=== PATIENT | male | born 1960 | race Caucasian/White ===

== ENCOUNTER 2022-11-26 10:15 | Inpatient (IN) | payer MEDICAID ==
[~2022-11-26] VITALS: Ht 180.3 cm; Wt 108.8 kg
[2022-11-26] MEDS ORDERED: SODIUM CHLOR 0.9% PF (SALINE LOCK) 10ML VIAL/SYR IV ONE (10:45)
[2022-11-26 10:53] LABS: Basophils # (auto) 0.1 10 ^3/uL (0-0.2); Basophils % (auto) 0.5 % (0.0-2.0); Eosinophils # (auto) 0 10 ^3/uL (0-0.8); Eosinophils % (auto) 0.4 % (0.0-7.0); Hematocrit 51.3 % (41.0-53.0); Hemoglobin 16.9 g/dL (13.5-17.5); Lymphocytes # (auto) 1.6 10 ^3/uL (0.4-5.4); Lymphocytes % (auto) 15.3 % (10.0-50.0); Mean Corpuscular Hemoglobin 29.9 pg (28.0-32.0); Mean Corpuscular Volume 90.6 fL (80.0-100.0); Monocytes # (auto) 0.7 10 ^3/uL (0-1.3); Monocytes % (auto) 6.5 % (0.0-12.0); Neutrophils # (auto) 8.3 10 ^3/uL (1.6-8.6); Neutrophils % (auto) 77.3 % (37.0-80.0); Red Blood Cells 5.66 10^6/uL (4.5-5.90); Red Cell Distribution Width 15.3 % (11.8-14.3); White Blood Cell 10.7 10^3/uL (4.4-10.8)
[2022-11-26 11:16] LABS: Lactic Acid w/Reflex 2.2 mmol/L (0.4-2.0)
[2022-11-26 11:22] LABS: INR 1.26 (0.9-1.15); Partial Thromboplastin Time 29.1 SEC (24.5-34.5)
[2022-11-26 11:35] LABS: Urine Bacteria NONE SEEN /hpf (None Seen); Urine Blood Negative /uL (Negative); Urine Specific Gravity 1.009 (1.001-1.035); Urine WBC <1 /hpf (0 - 3)
[2022-11-26 11:40] LABS: Potassium 4.1 mmol/L (3.5-5.1)
[2022-11-26 11:47] LABS: Albumin 3.3 g/dL (3.4-5.0); BUN/Creatinine Ratio 16.4 (10.0-20.0); Calcium 8.9 mg/dL (8.5-10.1)
[2022-11-26 11:50] LABS: Bilirubin, Total 2.7 mg/dL (0.2-1.0); Total Protein 6.1 g/dL (6.4-8.2)
[2022-11-26] MEDS ORDERED: FUROSEMIDE 40 MG/4 ML VIAL IV ONE (13:15)
[2022-11-26] MEDS ORDERED: DOCUSATE SOD 100 MG CAP PO PRN (14:30)
[2022-11-26] MEDS ORDERED: MORPHINE SULFATE INJ 2 MG/ml SYRG IV PRN (14:30)
[2022-11-26] MEDS ORDERED: ONDANSETRON HCL 4 MG/2 ML VIAL IV PRN (14:30)
[2022-11-26] MEDS ORDERED: NITROGLYCERIN 0.4 MG SL TAB SL PRN (14:30)
[2022-11-26] MEDS ORDERED: ACETAMINOPHEN 325 MG TAB PO PRN (14:30)
[2022-11-26] MEDS: DOXYCYCLINE 100MG/250ML 250 ML IV SCH (14:38)
[2022-11-26] MEDS: HYDROcodone-ACET 5/325MG TAB PO PRN ×2 (15:46→20:48)
[2022-11-26] MEDS: FUROSEMIDE 40 MG/4 ML VIAL IV SCH (19:10)
[2022-11-26] MEDS: SODIUM CHLOR 0.9% PF (SALINE LOCK) 10ML VIAL/SYR IV SCH (22:28)
[2022-11-26] MEDS ORDERED: dilTIAZem 25 MG/5 ML VIAL IV ONE (22:45)
[2022-11-27] VITALS (7 sets, daily range): BP systolic 140–164; BP diastolic 80–118
[2022-11-27] MEDS: HYDROcodone-ACET 5/325MG TAB PO PRN ×3 (02:40→22:21)
[2022-11-27] MEDS: DOXYCYCLINE 100MG/250ML 250 ML IV SCH ×2 (02:41→13:13)
[2022-11-27 06:21] LABS: Basophils # (auto) 0.1 10 ^3/uL (0-0.2); Basophils % (auto) 0.6 % (0.0-2.0); Eosinophils # (auto) 0.1 10 ^3/uL (0-0.8); Eosinophils % (auto) 1.1 % (0.0-7.0); Hematocrit 50.5 % (41.0-53.0); Hemoglobin 16.9 g/dL (13.5-17.5); Lymphocytes # (auto) 1.9 10 ^3/uL (0.4-5.4); Mean Corpuscular Hemoglobin 30.1 pg (28.0-32.0); Mean Corpuscular Hgb Conc. 33.4 g/dL (32.0-36.0); Mean Corpuscular Volume 90.2 fL (80.0-100.0); Monocytes # (auto) 0.7 10 ^3/uL (0-1.3); Monocytes % (auto) 7.6 % (0.0-12.0); Neutrophils # (auto) 6.9 10 ^3/uL (1.6-8.6); Neutrophils % (auto) 70.7 % (37.0-80.0); Nucleated Red Blood Cells % 0.2 %; Red Cell Distribution Width 15.3 % (11.8-14.3); White Blood Cell 9.7 10^3/uL (4.4-10.8)
[2022-11-27] MEDS: FUROSEMIDE 40 MG/4 ML VIAL IV SCH ×2 (06:21→17:52)
[2022-11-27] MEDS: SODIUM CHLOR 0.9% PF (SALINE LOCK) 10ML VIAL/SYR IV SCH ×3 (06:21→22:21)
[2022-11-27 06:25] LABS: Albumin 3.1 g/dL (3.4-5.0); BUN/Creatinine Ratio 15.6 (10.0-20.0); Calcium 8.7 mg/dL (8.5-10.1)
[2022-11-27 06:37] LABS: Bilirubin, Total 2.5 mg/dL (0.2-1.0); Total Protein 6.1 g/dL (6.4-8.2)
[2022-11-27] MEDS ORDERED: MUPI2OIN2 TOP (09:02)
[2022-11-27] MEDS ORDERED: FURO40TA4 PO (09:02)
[2022-11-27] MEDS ORDERED: TRAM50TA2 PO (09:02)
[2022-11-27] MEDS ORDERED: DAKINS QUARTER STR 0.125% (NaHypochlorite) 473 ML TOPICAL SOL TOP ONE (18:30)
[2022-11-27] MEDS ORDERED: ONDANSETRON HCL 4 MG/2 ML VIAL IV PRN (21:30)
[2022-11-27] MEDS ORDERED: ENALAPRILAT 1.25 MG/ML-1ML VIAL IV PRN (21:30)
[2022-11-27] MEDS ORDERED: ALPRAZolam 0.25 MG TAB PO PRN (21:30)
[2022-11-27] MEDS ORDERED: ASPirin 81 mg TAB PO ONE (21:30)
[2022-11-27] MEDS: SACUBITRIL-VALSARTAN 24mg/26mg TAB PO SCH (22:21)
[2022-11-28] MEDS ORDERED: ALBUTEROL SULF 2.5 MG/0.5ML(0.5%) NEB SOLN NEB PRN (01:30)
[2022-11-28] MEDS: DOXYCYCLINE 100MG/250ML 250 ML IV SCH ×2 (02:11→14:46)
[2022-11-28 04:56] VITALS: BP 153/97
[2022-11-28] MEDS: FUROSEMIDE 40 MG/4 ML VIAL IV SCH ×2 (05:06→10:25)
[2022-11-28] MEDS: SODIUM CHLOR 0.9% PF (SALINE LOCK) 10ML VIAL/SYR IV SCH ×3 (05:06→21:17)
[2022-11-28 05:44] LABS: Basophils # (auto) 0.1 10 ^3/uL (0-0.2); Basophils % (auto) 0.6 % (0.0-2.0); Eosinophils # (auto) 0.1 10 ^3/uL (0-0.8); Eosinophils % (auto) 1.1 % (0.0-7.0); Hematocrit 49.6 % (41.0-53.0); Hemoglobin 16.6 g/dL (13.5-17.5); Lymphocytes # (auto) 1.8 10 ^3/uL (0.4-5.4); Lymphocytes % (auto) 18.9 % (10.0-50.0); Mean Corpuscular Hemoglobin 29.9 pg (28.0-32.0); Mean Corpuscular Hgb Conc. 33.4 g/dL (32.0-36.0); Mean Corpuscular Volume 89.6 fL (80.0-100.0); Monocytes # (auto) 0.7 10 ^3/uL (0-1.3); Monocytes % (auto) 7.7 % (0.0-12.0); Neutrophils # (auto) 6.8 10 ^3/uL (1.6-8.6); Neutrophils % (auto) 71.7 % (37.0-80.0); Nucleated Red Blood Cells % 0.2 %; Red Blood Cells 5.54 10^6/uL (4.5-5.90); Red Cell Distribution Width 14.9 % (11.8-14.3); White Blood Cell 9.5 10^3/uL (4.4-10.8)
[2022-11-28 05:49] LABS: INR 1.3 (0.9-1.15)
[2022-11-28 05:58] LABS: Potassium 3.4 mmol/L (3.5-5.1)
[2022-11-28] MEDS: HYDROcodone-ACET 5/325MG TAB PO PRN ×2 (06:01→21:17)
[2022-11-28 06:06] LABS: Bilirubin, Direct 1.6 mg/dL (0-0.2); Bilirubin, Total 2.4 mg/dL (0.2-1.0)
[2022-11-28] MEDS ORDERED: POTASSIUM CHL 20 Meq TABLET PO ONE (08:15)
[2022-11-28] MEDS ORDERED: hydrALAZINE HCL 20 MG/ML VL IV PRN (08:30)
[2022-11-28 09:00] VITALS: BP 138/81
[2022-11-28 09:53] VITALS: BP 153/97
[2022-11-28] MEDS: ASPirin 81 mg TAB PO SCH (10:25)
[2022-11-28] MEDS: SACUBITRIL-VALSARTAN 24mg/26mg TAB PO SCH ×2 (10:25→21:17)
[2022-11-28] MEDS: SPIRONOLACTONE 25 MG TAB PO SCH (10:26)
[2022-11-28] MEDS: ENOXAPARIN SOD 40 MG/0.4 ML SYRINGE SC SCH (10:26)
[2022-11-28] MEDS: IPRATROPIUM BROM 0.5 MG/2.5ML INH SOL NEB SCH ×3 (11:19→19:05)
[2022-11-28 13:00] VITALS: BP 141/80
[2022-11-28] MEDS ORDERED: IPRATROPIUM BROM 0.5 MG/2.5ML INH SOL NEB SCH (14:00)
[2022-11-28 17:00] VITALS: BP 151/91
[2022-11-28 22:00] VITALS: BP 150/93
[2022-11-28] MEDS ORDERED: ATORVASTATIN 20 MG TAB PO SCH (22:00)
[2022-11-29] MEDS: HYDROcodone-ACET 5/325MG TAB PO PRN (01:20)
[2022-11-29] MEDS: DOXYCYCLINE 100MG/250ML 250 ML IV SCH (02:07)
[2022-11-29] MEDS: IPRATROPIUM BROM 0.5 MG/2.5ML INH SOL NEB SCH ×3 (02:45→10:00)
[2022-11-29 05:00] VITALS: BP 149/99
[2022-11-29] MEDS: SODIUM CHLOR 0.9% PF (SALINE LOCK) 10ML VIAL/SYR IV SCH (06:00)
[2022-11-29 06:26] LABS: Basophils # (auto) 0.1 10 ^3/uL (0-0.2); Basophils % (auto) 0.8 % (0.0-2.0); Eosinophils # (auto) 0.1 10 ^3/uL (0-0.8); Eosinophils % (auto) 1.4 % (0.0-7.0); Hematocrit 49.4 % (41.0-53.0); Hemoglobin 16.5 g/dL (13.5-17.5); Lymphocytes % (auto) 21.6 % (10.0-50.0); Mean Corpuscular Hemoglobin 29.9 pg (28.0-32.0); Mean Corpuscular Hgb Conc. 33.4 g/dL (32.0-36.0); Mean Corpuscular Volume 89.7 fL (80.0-100.0); Monocytes # (auto) 0.7 10 ^3/uL (0-1.3); Neutrophils # (auto) 6.3 10 ^3/uL (1.6-8.6); Neutrophils % (auto) 68.2 % (37.0-80.0); Nucleated Red Blood Cells % 0.1 %; Red Blood Cells 5.51 10^6/uL (4.5-5.90); Red Cell Distribution Width 14.8 % (11.8-14.3); White Blood Cell 9.2 10^3/uL (4.4-10.8)
[2022-11-29 07:08] LABS: Potassium 3.6 mmol/L (3.5-5.1)
[2022-11-29 07:29] LABS: Albumin 3.1 g/dL (3.4-5.0); BUN/Creatinine Ratio 15.4 (10.0-20.0); Bilirubin, Total 2.8 mg/dL (0.2-1.0); Calcium 8.6 mg/dL (8.5-10.1); Total Protein 5.8 g/dL (6.4-8.2)
[2022-11-29 09:00] VITALS: BP 161/105
[2022-11-29] MEDS: FUROSEMIDE 40 MG/4 ML VIAL IV SCH (09:21)
[2022-11-29] MEDS: SACUBITRIL-VALSARTAN 24mg/26mg TAB PO SCH (09:22)
[2022-11-29] MEDS: SPIRONOLACTONE 25 MG TAB PO SCH (09:22)
[2022-11-29] MEDS: ASPirin 81 mg TAB PO SCH (09:22)
[2022-11-29] MEDS: ENOXAPARIN SOD 40 MG/0.4 ML SYRINGE SC SCH (09:22)
[2022-11-29] MEDS ORDERED: CARVEDILOL 3.125 MG TAB PO ONE (09:45)
[2022-11-29] MEDS ORDERED: amLODIPine BESYLATE 5 MG TAB PO SCH (10:00)
[2022-11-29] MEDS ORDERED: CARVEDILOL 3.125 MG TAB PO SCH (22:00)
== END 2022-11-29 09:45 | disposition left against medical advice (07) | DRG 194 ==
LOC: ER 10:15 → OVERFLOW 14:29 → WEST WING 21:20 → TELE-WESTW 11-27 23:27
PROVIDERS: ADMIT Nurse Practitioner Family; ATTEND Internal Medicine Geriatric Medicine
DX: I11.0 Hypertensive heart disease with heart failure (principal); I27.20 Pulmonary hypertension, unspecified; L03.115 Cellulitis of right lower limb; E44.1 Mild protein-calorie malnutrition; K76.1 Chronic passive congestion of liver; L97.519 Non-pressure chronic ulcer of other part of right foot with unspecified severity; L03.116 Cellulitis of left lower limb; I50.23 Acute on chronic systolic (congestive) heart failure; L97.529 Non-pressure chronic ulcer of other part of left foot with unspecified severity; N50.89 Other specified disorders of the male genital organs; Z53.29 Procedure and treatment not carried out because of patient's decision for other reasons; E78.5 Hyperlipidemia, unspecified; E87.6 Hypokalemia; I08.1 Rheumatic disorders of both mitral and tricuspid valves; Z68.33 Body mass index [BMI] 33.0-33.9, adult; Z72.0 Tobacco use
CPT/HCPCS: 36415; 71045; 73620; 76870; 80053; 80061; 81001; 82247; 82248; 82435; 82565; 82947; 83036; 83605; 83735; 83880; 84132; 84295; 84484; 84520; 85025; 85610; 85730; 87040; 93005; 93306; 93970; 94640; 96365; 96375; 96376; 99291; G0378; J3490